=== PATIENT | female | born 1985 | race Caucasian/White ===

== ENCOUNTER 2017-11-29 12:13 | Emergency (ER) | payer OTHER ==
[~2017-11-29] VITALS: Ht 170.2 cm; Wt 49.9 kg
[2017-11-29] MEDS ORDERED: MEDROL DOSPAK21 TA1 PO (12:48)
[2017-11-29] MEDS ORDERED: ROBAXIN 750 MG750 M1 PO (12:49)
[2017-11-29] MEDS ORDERED: PAIN & FEVER325 MG PO (12:49)
[2017-11-29] MEDS ORDERED: DEPO-PROVE150 MG/11 IM (12:50)
[2017-11-29] MEDS ORDERED: TRAMADOL 50 MG50 MG PO (13:29)
[2017-11-29] MEDS ORDERED: PREDNISONE 20 M20 MG PO (13:29)
[2017-11-29 13:30] VITALS: BP 111/71
== END 2017-11-29 14:37 | disposition home or self-care (01) ==
LOC: ER 12:13
DX: M54.41 Lumbago with sciatica, right side (principal); M54.42 Lumbago with sciatica, left side; N64.4 Mastodynia; F17.210 Nicotine dependence, cigarettes, uncomplicated; Z98.82 Breast implant status; Z90.49 Acquired absence of other specified parts of digestive tract; Z88.6 Allergy status to analgesic agent; Z88.0 Allergy status to penicillin